=== PATIENT | male | born 1950 | race Caucasian/White ===

== ENCOUNTER 2023-09-08 08:40 | Outpatient (CLI) | payer MEDICARE, SELFPAY | END 2023-09-08 08:41 | disposition home or self-care (01) | PROVIDERS: PCP Family Medicine; Visit Provider Family Medicine | DX: Z00.00 Encounter for general adult medical examination without abnormal findings (principal); R73.9 Hyperglycemia, unspecified; E78.00 Pure hypercholesterolemia, unspecified; I10 Essential (primary) hypertension; Z12.5 Encounter for screening for malignant neoplasm of prostate; Z79.01 Long term (current) use of anticoagulants | CPT/HCPCS: 80061; 80076; 84153 ==

== ENCOUNTER 2023-11-25 08:51 | Outpatient (CLI) | payer MEDICARE, SELFPAY | END 2023-11-25 08:52 | disposition home or self-care (01) | LOC: NFLDREF 11-27 08:00 | PROVIDERS: PCP Family Medicine; Referring Provider Family Medicine; Visit Provider Family Medicine | DX: E78.00 Pure hypercholesterolemia, unspecified (principal); R73.9 Hyperglycemia, unspecified; Z79.01 Long term (current) use of anticoagulants | CPT/HCPCS: 80061; 80076 ==

== ENCOUNTER 2024-03-10 08:33 | Outpatient (CLI) | payer MEDICARE, SELFPAY | END 2024-03-10 08:34 | disposition home or self-care (01) | LOC: LKVREF 08:34 | PROVIDERS: PCP Family Medicine; Visit Provider Family Medicine | DX: Z12.5 Encounter for screening for malignant neoplasm of prostate (principal) | CPT/HCPCS: G0103 ==

== ENCOUNTER 2024-10-12 08:49 | Outpatient (CLI) | payer MEDICARE, SELFPAY | END 2024-10-12 08:50 | disposition home or self-care (01) | LOC: NFLDREF 10-17 02:40 | PROVIDERS: PCP Family Medicine; Referring Provider Family Medicine; Visit Provider Family Medicine | DX: Z79.01 Long term (current) use of anticoagulants (principal); Z86.718 Personal history of other venous thrombosis and embolism | CPT/HCPCS: 85610 ==

== ENCOUNTER 2024-12-02 11:03 | Outpatient (CLI) | payer MEDICARE, SELFPAY | END 2024-12-02 11:04 | disposition home or self-care (01) | PROVIDERS: PCP Family Medicine; Visit Provider Family Medicine | DX: Z00.01 Encounter for general adult medical examination with abnormal findings (principal); R53.83 Other fatigue; N52.9 Male erectile dysfunction, unspecified; I10 Essential (primary) hypertension; Z86.718 Personal history of other venous thrombosis and embolism; Z79.01 Long term (current) use of anticoagulants; I87.2 Venous insufficiency (chronic) (peripheral); E78.00 Pure hypercholesterolemia, unspecified; Z12.5 Encounter for screening for malignant neoplasm of prostate; Z13.29 Encounter for screening for other suspected endocrine disorder; Z87.891 Personal history of nicotine dependence; F10.10 Alcohol abuse, uncomplicated | CPT/HCPCS: 80053; 80061; 84270; 84402; 84403; 84443; 85610; G0103 ==